=== PATIENT | female | born 2000 | race Caucasian/White ===

== ENCOUNTER 2023-08-08 13:08 | Emergency (ER) | payer BC, SELFPAY ==
[2023-08-08 13:22] VITALS: BP 112/74; PULSE 97; RESP 20; TEMP 36.8; O2SAT 98
--- NOTE | 2023-08-08 13:36 | ED.URI ---
HPI - URI/Sore Throat General Chief Complaint: Upper Respiratory Infection Stated Complaint: SINUS CONGESTION/EARACHE Source: patient Mode of arrival: ambulatory Limitations: no limitations History of Present Illness HPI Narrative: 22 y/o female presented for c/o sinus congestion and drainage for one week, now feels left ear pain with muffled hearing and pressure. She denies shortness of breath, wheezing, nausea, vomiting, fevers or chills. States last year she had ruptured ear drum and is concerned for the same. Related Data Allergies Allergy/AdvReac Type Severity Reaction Status Date / Time No Known Allergies Allergy Verified 08/08/23 13:48 Review of Systems Review of Systems: CONSTITUTIONAL: Denies malaise, chills, or fever. EYES: Denies visual changes, redness, or discharge. ENT: Denies sinus pain, and sore throat. Reports ear pain, rhinorrhea, congestion CARDIOVASCULAR: Denies chest pain, palpitations, or edema. RESPIRATORY: Denies cough or dyspnea. GASTROINTESTINAL: Denies abdominal pain, nausea, vomiting, diarrhea SKIN: Denies rash or itching. MUSCULOSKELETAL: Denies myalgia. NEUROLOGIC: Denies headache. All systems reviewed & are unremarkable except as noted in HPI and below PMFSH Past Medical History Medical History (Updated 08/08/23 @ 13:50 by Leah Moore APRN) No pertinent past medical history Comments At time of signature, agree with nursing past medical, surgical, social and family history. There is no relevant family history pertinent to the presenting complaint Exam Narrative: GENERAL: mildly ill-appearing, well-nourished, and in no acute distress. HEAD: Normocephalic EYES: PERRLA, conjunctivae clear ENT: Nares clear. Mucous membranes moist. TMs pearly murphy with dull light reflex bilaterally; no tragal tenderness. Oropharynx not erythematous without lesions. NECK: Supple. No lymphadenopathy CHEST: Clear to auscultation, breath sounds equal. No wheezing, rhonchi, rales, or stridor. No respiratory distress, speaks in full sentences. HEART: Regular rate and rhythm. No murmur heard. SKIN: Warm, dry, no rash. NEURO: Alert and oriented x3. PSYCH: Normal mood and affect Course Course Emergency Course: Patient is aware of diagnosis, understands and agrees to treatment plan. Anticipatory guidance given. Patient agrees to follow-up as directed and is aware of reasons to seek care at the emergency department. Portions of this record may have been created with voice recognition software Level of Care: Express Care Visit Vital Signs Vital signs: Vital Signs Temperature 98.3 F 08/08/23 13:22 Pulse Rate 97 08/08/23 13:22 Respiratory Rate 20 08/08/23 13:22 Blood Pressure 112/74 08/08/23 13:22 Pulse Oximetry 98 08/08/23 13:22 Temperature 98.3 F 08/08/23 13:22 Pulse Rate 97 08/08/23 13:22 Respiratory Rate 20 08/08/23 13:22 Blood Pressure 112/74 08/08/23 13:22 Pulse Oximetry 98 08/08/23 13:22 Reviewed MDM - URI/Sore Throat MDM Narrative Medical decision making narrative: Discussed physical exam findings. Patient resides in [facility], will continue supportive measures and if no improvement will start abx. Reviewed signs/symptoms to go to the ER. Pt is appropriate for outpt treatment and f/u. Differential Diagnosis Differential diagnosis: Likely upper respiratory infection, otitis media, sinusitis, viral infection, bronchitis and pharyngitis Discharge Plan Discharge Clinical Impression: Upper respiratory infection Patient Disposition: Home, Self-Care Condition: Stable Instructions: Antibiotic Form, Upper Respiratory Infection (ED) Additional Instructions: Recommend Flonase spray and Zyrtec (or Claritin/Kaylie) over the counter Cough syrup may cause drowsiness; avoid driving or take it at night time. Tylenol 1000mg every 8 hours as needed for pain Symptomatic treatment includes: rest, fluids, and increase humidity of the air at
== END 2023-08-08 14:05 | disposition home or self-care (01) ==
PROVIDERS: Emergency Provider Nurse Practitioner Family; PCP Nurse Practitioner Family
DX: J06.9 Acute upper respiratory infection, unspecified (principal)
CPT/HCPCS: 99213; G0463

== ENCOUNTER 2025-04-05 12:05 | Outpatient (CLI) | payer BC, SELFPAY ==
--- NOTE | ~2025-04-05 | MM_ITS ---
EXAMINATION: MM screening priya BI w tip HISTORY: Screening TECHNIQUE: Craniocaudal and mediolateral oblique 3-D tomosynthesis images were obtained and synthetic 2-D images were generated. CAD analysis was submitted and interpreted. COMPARISON: No prior mammogram is available for comparison at this institution. BREAST PARENCHYMAL COMPOSITION: Dense: The breasts are extremely dense, which lowers the sensitivity of mammography. FINDINGS: There is no evidence of suspicious mass, calcification, or architectural distortion to sugg est malignancy in either breast. There has been no suspicious interval change. IMPRESSION: 1. No mammographic evidence of malignancy. 2. Recommend routine screening mammography in one year. BI-RADS Category 1: Negative Reviewed, dictated and finalized at location B.
--- OUTSIDE RECORDS SUMMARY | 2025-04-05 13:05 | XMS_ITS | Encounter Summary ---
Author Organization [facility] Address [address] [place] [address] Care Team Providers Care Scissors Grinder Name Role Phone Unavailable Primary Care Provider Unavailabl e Reason for Visit * Eval and Treat (Routine) - Closed Specialty Diagnoses / Procedures Referred By Cristino t Referred To Contact Sports Medicine Diagnoses Acute pain of right knee Acute medial meniscus tear of right knee, initial encounter Christopher Soriano PA [address] [place] [address] Phone: tel: fax: [facility] [address] [address] Phone: tel: fax: Referral ID Status Reason Start Date Expiration Date Visits Requested Visits Authorized [id number] Closed Performing Department to Schedule 02/11/2022 02/12/2023 12 12 Encounter Details Date Type Department Care Team (Late st Contact Info) Description 03/13/2022 12:52 PM CDT Hospital Encounter [facility] [address] [address] Christopher Soriano PA [address] [facility] [address] [place] [address] Social History Tobacco Use Types Packs/Day Years Used Date Smoking Tobacco: Never Smokeless Tobacco: Never Comments No Sex and Gender Information Value Date Recorded Sex Assigned at Not on file Legal Sex Female 12:22 PM DIRECTOR COMM[facility] Gender Identity Not on file Sexual Orientation Not on file COVID-19 Exposure Response Date Recorded In the last 10 days, have yo u been in contact with someone who was confirmed or suspected to have Coronavirus/COVID-19? 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 TIER: 3 ?? PATIENT INTENDED TREATMENT OUTCOME / GOALS ?? Patient's stated specific intended outcome(s) for therapy is??decrease her right knee pain to participate in recreational activity with her friends, and workout pain free and without restriction for socialization, fitness. ?? Short Term: Decrease knee pain so I can walk normally ?? 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 OBJECTIVE Observation: Minimal swelling to popliteal space ?? Shapes of Movement: Standing: pass Bottom of deadlift: pass ?? Mobility/Range of Motion: Equivalent passive and active terminal knee extension in supine Prone active knee flexion equivalent bilaterally Prone passive knee flexion mild limitation and increase in medial knee pain ?? Palpation: Tenderness in adductors and with dermal mobilization of medial knee TREATMENT ACTIVITIES: Today's Clinical Priority - based on today's clinical presentation: Tissue quality: Dermal mobilization of medial knee Mobility: End range knee flexion Motor Control: Tibial advancement strategy, active tibial rotation SC4: Deadlif Treatment Start Time: 1300 MANUAL THERAPY Clinician: Wesley Reyes DPT, ATC 10 minutes CLINICAL REASONING: soft tissue quality / compliance Region: Technique: Notes: Right knee dermal / subcutaneous mobilization Medial knee THERAPEUTIC EXERCISE Clinician: Wesley Reyes DPT, ATC 15 minutes CLINICAL REASONING: range of motion Target Notes: Tibial rotation graded exposure Sitting 90/90 Rastafari band application to proximal tibia Tibial internal and external rotation passively ?? Short quadruped Rastafari band application to proximal tibia Tibial internal and external rotation passively ?? NEURO RE-EDUCATION Clinician: Wesley Reyes DPT, ATC 20 minutes CLINICAL REASONING: Static Stabilization Impairment, Dynamic Stabilization Impairment and Functional Impairment Static Dynamic Assisted Loaded Notes: x Quadruped x x Quadrusac Hip internal / external rotation x Sitting x x V-sitting Red band around each foot Flexion <> extension at knee +dissociation progression Kettlebell overhead pressing x Kneeling x x 1/2 kneeling Anterior weight shifting Tibial advancement strategy Symmetrical Stance Bottom of deadlift Medial / lateral weight shifting x Asymmetrical Stance x x Elevated asymmetrical stance Active tibial rotation progression THERAPEUTIC ACTIVITY Clinician: Wesley Reyes DPT, ATC 15 minutes CLINICAL REASONING: Strength deficit and Functional limitations Assisted Loaded Notes: x Deadlift Progression x Kettlebell deadlift Lateral kettlebell deadlift NOTE: patient had markedly improved passive prone knee flexion overpressure Total Treatment Time: 60 minutes POST TREATMENT NOTES Next Treatment Suggestion/Targets: Tissue quality: Dermal to medial knee as needed Mobility: Recheck passive knee flexion Motor Control: Reassess SC4: arthur Pearson Patient reported no pain at her medial knee at the conclusion of treatment at rest. documented in this encounter Plan of Treatment Not on file documented as of this encounter Visit Diagnoses Not on filedocumented in this encounter Additional Health Concerns Infection Onset Date Last Indicated Resolved Time R/O COVID-19 04/14/2022 04/15/2022 04/15/2022 10:5 6 PM CDT documented as of this encounter
--- OUTSIDE RECORDS SUMMARY | 2025-04-05 13:06 | XMS_ITS | Continuity of Care Document ---
Author Organization [facility] Address [address] [place] [address] Phone Care Team Providers Care Conference Center Manager Name Role Phone Ria Mcpherson Unavailable Unavailabl e Allergies, Adverse Reactions, Alerts Substance Reaction Status Criticality No Known Allergies Active No Inform ation Medications Medication Instructions Dosage Effective Dates (start - stop) Status Comments Pyridium 200 mg tablet take 1 tablet by oral route 3 times every day after meals as needed 200 MG - Active Cipro 500 mg tablet take 1 tablet by oral route every 12 hours 500 MG - No Longer Active Procedures Procedure Date OFFICE/OUTPATIENT VISIT, EST URINALYSIS, AUTO, W/O SCOPE URINALYSIS, AUTO, W/O SCOPE URINALYSIS, AUTO, W/O SCOPE OFFICE/OUTPATIENT VISIT, NEW Results Test Name Date and Time Measure Units Reference Range Abnormal Flag Status Comments Panel Description: Urinalysis, Dip Final U-Glucose 10:08:00 1+ (250 mg/dL) Negative / Trace H Final Urinalysis Results may be Artificially Elevated due to Color of Specimen. U-Bilirubin 10:08:00 3+ (4 mg/dL) Negative A Final Urinalysis Results may be Artificially Elevated due to Color of Specimen. U-Ketones 10:08:00 5.0 Final U-Specific [place] 10:08:00 1.020 1.000 - 1.030 Final U-Occult Blood 10:08:00 1+ (25 Rafael/uL) Negative / Trace A Final Urinalysis Results may be Artificially Elevated due to Color of Specimen. U-pH 10:08:00 5.0 pH 5.0 - 9.0 Final U-Protein 10:08:00 Trace (+/- 15 mg/dL) Negative / Trace Final U-Urobilinog en 10:08:00 3+ (8.0 mg/dL) mg/dL 0.2 - 1.0 A Final Urinalysis Results may be Artificially Elevated due to Color of Specimen. U-Nitrite 10:08:00 Positive Negative POS Final Urinalysis Results may be Artificially Elevated due to Color of Specimen. U-Leukocytes 10:08:00 3+ (500 Torri/uL) Negative / Trace A Final Urinalysis Results may be Artificially Elevated due to Color of Specimen. Panel Description: Urine Culture, Routine Final Location of specimen? (i.e. throat, urethra, wound) 09:06:00 urine Final Result 1 09:06:00 Comment Final Culture shows less than 10,000 colony forming units of bacteria permilliliter of urine. This colony count is not generally consideredto be clinically significant. Urine Culture, Routine 09:06:00 Final report Final Advance Directives Directive Yes / No Effective Date File Name No Information Encounters Encounter Description Practice Location Reason(s) For Visit Diagnoses Date Provider Providers Copied on Encounter OFFICE/OUTPAT IENT VISIT, [facility], [address] [place] [address] [place], [id number], [place] tel:[phone] [facility] dysuria (chief complaint) Dysuria Candy Rollins. [address] [place] [address], [id number], [place]. tel:[phone] Referring Provider: Ria Gupta, [address] [place] [address], [address]. tel:[phone] OFFICE/OUTPAT IENT VISIT, [facility], [address] [facility] [address], [place], [place], [id number], [place] tel:[phone] [facility] Dysuria (chief complaint) DysuriaUTI Violette Shelley. [address] [place] [address], [id number], [place]. tel:[phone] Referring Provider: Daphney Oakes, [address] [place] [address], [address]. tel:[phone] Family History Family Member Type Diagnosis Age At Onset No Information Payers Payer name Insurance type Covered alliance party ID Authoriza tibrady(s) [facility] [id number] BL [id number] Social History Type Description Quantity Date Captured Comments Alcohol Use Details Unknown Caffeine Use Details Unknown Tobacco Use Status No Information Smoking Status No Information Sex Female Vital Signs Date / Time: Height Weight BMI Pulse Rate Blood Pressure Temperature Respiratory Rate Body Surface Area Head Circumference Head Circ. Percentile Wt./Elías. Percentile BMI percentile Pulse Ox Inhaled Ox 2:08 PM 66.00 in 59.421 kg (131.00 lbs) 21.1 4 kg/m eter (2) 91 /min 112/68 mm[Hg] 98.20 F 16 /min 97 % Chief Complaint And Reason For Visit From encounter dated '07/16/2023 09:45'. dysuria (chief complaint). Description: Onset: 1 Day. The severity of the problem is mild. The problem has worsened. The symptoms are constant. Presenting/Initial symptoms include abdominal pain, dysuria, frequency, lower back pain and urgency. Aggravating factors include urination. Denies relieving factors. Associated symptoms include abdominal pain, dysuria, frequency and urgency. Pertinent negatives include dribbling, fatigue, fever, flank pain, hematuria, hesitancy, nausea, nocturia, pelvicpain, penile discharge, pressure, rash, retention, vaginal discharge or vomiting. Reason For Referral Reason For Referral No Information Plan Of Treatment Date Type Action Status Referral Ordered: Dr. Tino Clay -Obstetrics and Gynecology (related to Dysuria) ordered Referral Referred To: Dr. Tino Clay Ordered: Referrals: Obstetrics and Gynecology. Dr. Tino Clay. Location: [facility]. Evaluate and treat ordered Future Order: Lab Order Genitour inary Infection, [facility] ([facility]), Collected on: , Sent on: Sent History Of Present Illness Encounter Date Complaint History Of Prese nt Illness dysuria Onset: 1 Day. Th e severity of the problem is mild. The problem has worsened. The symptoms are constant. Presenting/Initial symptoms include abdominal pain, dysuria, frequency, lower back pain and urgency. Aggravating factors include urination. Denies relieving factors. Associated symptoms include abdominal pain, dysuria, frequency and urgency. Pertinent negatives include dribbling, fatigue, fever, flank pain, hematuria, hesitancy, nausea, nocturia, pelvic pain, penile discharge, pressure, rash, retention, vaginal discharge or vomiting. Dysuria Onset: 3 Days. T he severity of the problem is moderate. Pain scale: 0/10. The problem has not changed. The symptoms are constant. Presenting/Initial symptoms include dysuria, frequency and urgency. Symptoms are associated with recurring urinary tract infections. Symptoms are not associated with diabetes, or recent catheterization. Aggravating factors include urination. Symptoms are not aggravated by baths, certain foods or sexual activity. Symptoms are not relieved by increased fluids, OTC analgesics, pain medication or rest. Associated symptoms include dysuria, frequency, pressure and urgency. Pertinent negatives include abdominal pain, dribbling, fatigue, fever, flank pain, hematuria, hesitancy, nausea, nocturia, pelvic pain, penile discharge, rash, retention, vaginal discharge or vomiting. Functional Status Date Functional Assessmen t Pain Score 0/10 Instructions Date Instruction Additional Infor talita UA: glucose 1+, bili ma 3+, blood 1+, protein trace, urobilinogen 3+, nitrite positive, leukocytes 3+Cephalexin 500mg BID x7 daysPyridium 200mg TID PRNCulture urine to ensure abx coverage.Increase fluid intakewipe front to backvoid before and after intercourseMay take tylenol/ibuprofen for pain PRNReferral to Uro/STIFF LEG DERRICK OPERATOR (Dr. Clay) in [facility] is s/s worsen or do not improve. Related to Dysuria -- Macrobid twice da jamari x5 days--Continue with Azo as needed--Increase water intake-- Motrin and Tylenol as needed-- Return to clinic as needed Related to UTI -- UA collected, res ults altered due to taking Azo-- Urine culture sent to [facility], will call patient with results Related to Dysuria Assessments Type Assessment Date assessment Dysuria impression 22-year-old female p resenting to urgent care with reports of UTI symptoms that began yesterday. Associated symptoms include frequency, urgency, odorous urine, dysuria, low abdominal pain, and low back pain. Patient reports she has taken Azo with moderate symptom relief. Physical exam findings include LCTA, bowel sounds active, heart rate regular, tenderness with palpation at suprapubic area, no CVA tenderness. Patient reports that she has history of frequent UTIs and is unsure of what else she could do to possibly prevent UTIs. Patient reports adequate water intake, wiping front to back, and avoiding other possible sources of UTIs. Discussion can of evaluation with urology for possible guidance on UTI care and patient agreeable to treatment plan and would like to be referred referred locally Mental Status Date Cognitive Assessment Orientation - Grady ed to time, place, person, situation. Patient Care Teams Name Effective Dates (start - stop) Status Members No Information
--- OUTSIDE RECORDS SUMMARY | 2025-04-05 13:06 | XMS_ITS | Encounter Summary ---
Author Organization [facility] Address [address] [place] [address] Care Team Providers Care Digital Marketing Intern Name Role Phone Unavailable Primary Care Provider Unavailabl e Reason for Visit * Eval and Treat (Routine) - Closed Specialty Diagnoses / Procedures Referred By Cristino t Referred To Contact Sports Medicine Diagnoses Acute pain of right knee Acute medial meniscus tear of right knee, initial encounter Christopher Soriano PA [address] [place] [address] Phone: tel: fax: [facility] [address] [address] Phone: tel: fax: Referral ID Status Reason Start Date Expiration Date Visits Requested Visits Authorized [id number] Closed Performing Department to Schedule 02/11/2022 02/12/2023 12 12 Encounter Details Date Type Department Care Team (Late st Contact Info) Description 03/20/2022 3:00 PM CDT Hospital Encounter [facility] [address] [address] Christopher Soriano PA [address] [facility] [address] [place] [address] Social History Tobacco Use Types Packs/Day Years Used Date Smoking Tobacco: Never Smokeless Tobacco: Never Comments No Sex and Gender Information Value Date Recorded Sex Assigned at Not on file Legal Sex Female 12:22 PM BEVELER Gender Identity Not on file Sexual Orientation Not on file COVID-19 Exposure Response Date Recorded In the last 10 days, have yo u been in contact with someone who was confirmed or suspected to have Coronavirus/COVID-19? 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 TIER:?3 ?? PATIENT INTENDED TREATMENT OUTCOME / GOALS ?? Patient's stated specific intended outcome(s) for therapy is??decrease her right knee pain to participate in recreational activity with her friends, and workout pain free and without restriction for socialization, fitness. ?? Short Term: Decrease knee pain so I can walk normally ?? Deli/Bakery Associate: alf self management of symptoms to participate fully in sand volleyball SUBJECTIVE Patient presents reporting that her knee is not doing too bad today. She states that she was verysore after last visit and the visit prior. However, this resolved after a day or so and she is doing better today. OBJECTIVE Observation: - Shapes of Movement: Standing: Pass PAIN (medial knee) Bottom of Deadlift: Pass Bottom of Lunge Left: Pass Bottom of Lunge Right: Pass Crouching Maykel Left: Fail Crouching Maykel Right: Fail Mobility/Range of Motion: Equavlent terminal knee extension Equivalent full access to short kneeling Palpation: - TREATMENT ACTIVITIES: Today's Clinical Priority - based on today's clinical presentation: Tissue quality: Dermal mobilization in terminal knee extension in stance Mobility: - Motor Control: - SC4: Lower extremity strength assessment, coordinated weight shifts Treatment Start Time: 1500 MANUAL THERAPY Clinician: Wesley Reyes DPT, ATC 10 minutes CLINICAL REASONING: soft tissue quality / compliance Region: Technique: Notes: Right knee dermal / subcutaneous mobilization Symmetrical stance + terminal knee extension Medial knee THERAPEUTIC ACTIVITY Clinician: Wesley Reyes DPT, ATC 0 minutes CLINICAL REASONING: Strength deficit Assisted Loaded Notes: x Squat Progression x Attempted strength assessment Single leg press increased medial knee pain significantly NEURO RE-EDUCATION Clinician: Wesley Reyes DPT, ATC 20 minutes CLINICAL REASONING: Static Stabilization Impairment, Dynamic Stabilization Impairment and Functional Impairment Static Dynamic Assisted Loaded Notes: x Kneeling x x Elevated 1/2 kneeling in deep knee flexion Pushing down Static hip abduction Heel raise progression x Asymmetrical Stance x x Elevated Asymmetrical stance in deep knee flexion Pushing down Static hip abduction Heel raise progression NOTE: tibial external rotation improves pain with deep knee flexion and terminal knee extension THERAPEUTIC ACTIVITY Clinician: Katerina Ortega 30minutes CLINICAL REASONING: Strength deficit Interventions: ??? Deadlift Progression: - o Asymmetrical stance - 35# kettlebell o Walking single leg deadlifts - no added weight ??? Lunge Progression: - o Box step-ups + 2, 13# kettlebell Notes/Treatment Outcomes: patient reports feeling really good, just out of shape Total Treatment Time: 60 minutes POST TREATMENT NOTES Next Treatment Suggestion/Targets: Tissue quality: - Mobility: - Motor Control: Transitional postures, asymmetrical to single limb SC4: Single limb strength assessment if pain free documented in this encounter Plan of Treatment Not on file documented as of this encounter Visit Diagnoses Not on filedocumented in this encounter Additional Health Concerns Infection Onset Date Last Indicated Resolved Time R/O COVID-19 04/14/2022 04/15/2022 04/15/2022 10:5 6 PM CDT documented as of this encounter
--- OUTSIDE RECORDS SUMMARY | 2025-04-05 13:06 | XMS_ITS | Encounter Summary ---
Author Organization [facility] Address [address] [place] [address] Care Team Providers Care Public Address System Installer Name Role Phone Unavailable Primary Care Provider Unavailabl e Reason for Visit * Eval and Treat (Routine) - Closed Specialty Diagnoses / Procedures Referred By Cristino t Referred To Contact Sports Medicine Diagnoses Acute pain of right knee Acute medial meniscus tear of right knee, initial encounter Christopher Soriano PA [address] [place] [address] Phone: tel: fax: [facility] [address] [address] Phone: tel: fax: Referral ID Status Reason Start Date Expiration Date Visits Requested Visits Authorized [id number] Closed Performing Department to Schedule 02/11/2022 02/12/2023 12 12 Encounter Details Date Type Department Care Team (Late st Contact Info) Description 03/15/2022 9:30 AM CDT Hospital Encounter [facility] [employer] [facility] [address] [address] Christopher Soriano PA [address] [facility] [address] [place] [address] Social History Tobacco Use Types Packs/Day Years Used Date Smoking Tobacco: Never Smokeless Tobacco: Never Comments No Sex and Gender Information Value Date Recorded Sex Assigned at Not on file Legal Sex 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 No / Unsure 11/29/2022 8:08 AM OFFSET PRINTING OPERATOR documented as of this encounter Miscellaneous Notes * Therapy Treatment - Wesley Reyes, Physical Therapist - 03/15/2022 9:[address] [facility] SPORTS MEDICINE [facility] DAILY TREATMENT RECORD Patient: Ariadne Hankins : 2000 Insurer: Payor: [employer] / Plan: BCBS TRADITIONAL / Product Type: PPO / DATE: 03/15/2022 Referring Physician: Christopher Soriano PA VISIT#: 4 Remaining authorized visits: 8 Diagnosis:?Right??knee??pain ?? TIER:?3 ?? PATIENT INTENDED TREATMENT OUTCOME / GOALS ?? Patient's stated specific intended outcome(s) for therapy is??decrease her right knee pain to participate in recreational activity with her friends, and workout pain free and without restriction for socialization, fitness. ?? Short Term: Decrease knee pain so I can walk normally ?? 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 OBJECTIVE Observation: - ?? Shapes of Movement: Standing:??pass Bottom of deadlift: pass Bottom of lunge Left: pass, painful to medial knee ?? Mobility/Range of Motion: Equivalent passive terminal knee extension in supine with increased medial pain Lacking active extension approximately 3 degrees compared contralaterally Prone active knee flexion equivalent bilaterally Prone passive knee flexion mild limitation and increase in medial knee pain ?? Palpation: Tenderness in adductors and with dermal mobilization of medial knee ?? TREATMENT ACTIVITIES: Today's Clinical Priority - based on today's clinical presentation: Tissue quality: Dermal of medial knee Mobility: Terminal knee extension Motor Control: Static hip progression SC4: Deadlift competency, Bottom of lunge capability Treatment Start Time: 09 MANUAL THERAPY Clinician: Wesley Reyes DPT, ATC 15 minutes CLINICAL REASONING: pain and soft tissue quality / compliance Region: Technique: Notes: right knee dermal / subcutaneous mobilization Medial knee NEURO RE-EDUCATION Clinician: Wesley Reyes DPT, ATC 45 minutes CLINICAL REASONING: Static Stabilization Impairment, Dynamic Stabilization Impairment and Functional Impairment Static Dynamic Assisted Loaded Notes: x Prone x x Prone Pushing down Knee flexion perturbations + assisted tibial internal rotation 90 flexion + active hip extension Kettlebell loaded hip extension x Supine x Sidelying Static hip abduction manual resistance x Kneeling x x 1/2 kneeling Anterior weight shifting +plantarflexion perturbations x Symmetrical Stance x x Symmetrical stance <> bottom of deadlift Assisted tibial internal rotation Kettlebell deadlift NOTE: patient demonstrated equivalent terminal knee extension in supine and stance, she did have some mild increase in pain following deadlifting, bottom of lunge still painful to medial knee Total Treatment Time: 60 minutes POST TREATMENT NOTES Next Treatment Suggestion/Targets: Tissue quality: Dermal medial knee Mobility: Recheck knee range of motion Motor Control: Needs static hip abduction progression, consider static 1/2 kneeling and bottom of deadlift progressions SC4: - documented in this encounter Plan of Treatment Not on file documented as of this encounter Visit Diagnoses Not on filedocumented in this encounter Additional Health Concerns Infection Onset Date Last Indicated Resolved Time R/O COVID-19 04/14/2022 04/15/2022 04/15/2022 10:5 6 PM CDT documented as of this encounter
--- OUTSIDE RECORDS SUMMARY | 2025-04-05 13:06 | XMS_ITS | Clinical Summary ---
Author Organization [facility] Address [address] [place] [address] Care Team Providers Care Neuropsychology Medical Consultant Name Role Phone Unavailable Primary Care Provider Unavailabl e Allergies No known active allergies Medications Drospirenone-Et hinyl estradiol 3-0.02 mg tablet TAKE 1 TABLET BY MOUTH EVERY DAY 06/04/2021 Active ondansetron (ZOFRAN ODT) 4 mg Tablet, Rapid Dissolve Take 1 Tablet (4 mg) by mouth every 6 hours as needed for Nausea/Emesis . Dissolve tablet on top of tongue, then swallow with saliva. 20 Tablet 01/19/2024 Active sucralfate (CARAFATE) 1 gram tablet Take 1 Tablet (1 Gram) by mouth 4 times daily before meals and at bedtime. 20 Tablet 01/19/2024 Active Active Problems No known active problems Encounters Date Type Department Care Team Description 01/12/2025 External Device Data [facility] ABSTRACTION Provider, Abstract 01/12/2025 External Device Data [facility] ABSTRACTION Provider, Abstract from Last 3 Months Immunizations Immunization Administration Dates Next Due (PFIZER)(12 YR UP) COVID-19 VACCINE - EMERGENCY USE AUTHORIZATION, MRNA, [id number](PF) 30 MCG/0.3 ML IM SUSP 05/14/2021,04/09/2021 INFLUENZA VACCINE QUADRIVALENT 6 MOS UP PF IM Influenza Seasonal Unspecified Formulation IM ,07/19/2020 Social History Tobacco Use Types Packs/Day Years Used Date Smoking Tobacco: Never Smokeless Tobacco: Never Tobacco Cessation:Counseling Given: Not Answered Comments No Sex and Gender Information Value Date Recorded Sex Assigned at Not on file 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 Gender Identity Not on file Sexual Orientation Not on file Last Filed Vital Signs Vital Sign Reading Time Taken Comments Blood Pressure 104/70 01/19/2024 2:28 PM CDT Pulse 82 01/19/2024 2:28 PM CDT Temperature 36.5 C (97.7 F) 01/19/2024 2:28 PM CDT Respiratory Rate 18 01/19/2024 2:28 PM CDT Oxygen Saturation 99% 01/19/2024 2:28 PM CDT Inhaled Oxygen Concentration - - Weight 58.1 kg (128 lb) 01/19/2024 2:28 PM CDT Height 167.6 cm (5' 6) 01/19/2024 2:28 PM CDT Body Mass Index 20.66 01/19/2024 2:28 PM CDT Plan of Treatment Health Maintenance Due Date Last Done Comments HPV VACCINES (1 - 3-dose series) 2014 DTAP/TDAP/TD VACCINES (1 - Tdap) 2018 HEPATITIS B VACCINES (1 of 3 - 19+ 3-dose series) 2018 CERVICAL CANCER SCREENING 2020 HPV/Cotest (21-29) 2020 PAP SMEAR 2020 INFLUENZA VACCINE (#1) 2024 2, 07/27/2021, 07/19/2020 COVID-19 Vaccine ( - 2023-2 5 season) 2024 05/14/2021, 04/09/2021 Insurance [facility] BLUE ACCESS CHOICE RX [employer] Commercial
--- OUTSIDE RECORDS SUMMARY | 2025-04-05 13:06 | XMS_ITS | Encounter Summary ---
Author Organization [facility] Address [address] [place] [address] Care Team Providers Care Bakery Technician Name Role Phone Unavailable Primary Care Provider Unavailabl e Reason for Visit * Eval and Treat (Routine) - Closed Specialty Diagnoses / Procedures Referred By Cristino t Referred To Contact Sports Medicine Diagnoses Acute pain of right knee Acute medial meniscus tear of right knee, initial encounter Christopher Soriano PA [address] [place] [address] Phone: tel: fax: [facility] [employer] [facility] [address] [address] Phone: tel: fax: Referral ID Status Reason Start Date Expiration Date Visits Requested Visits Authorized [id number] Closed Performing Department to Schedule 02/11/2022 02/12/2023 12 12 Encounter Details Date Type Department Care Team (Late st Contact Info) Description 04/04/2022 1:00 PM CDT Hospital Encounter [facility] [employer] [facility] [address] [address] Christopher Soriano PA [address] [facility] [address] [place] [address] Social History Tobacco Use Types Packs/Day Years Used Date Smoking Tobacco: Never Smokeless Tobacco: Never Comments No Sex and Gender Information Value Date Recorded Sex Assigned at Not on file Legal 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 No / Unsure 11/29/2022 8:08 AM WELDING SUPERVISOR documented as of this encounter Miscellaneous Notes * Therapy Treatment - Issac William ATC - 04/04/2022 1:00 PM CDT [facility] SP[facility]IC[facility] DAILY TREATMENT RECORD Patient: Ariadne Hankins : 2000 Insurer: Payor: [employer] / Plan: BCBS TRADITIONAL / Product Type: PPO / DATE: 04/04/2022 Referring Physician: Christopher Soriano PA VISIT#: 6 Remaining authorized visits: 6 Diagnosis:?Right??knee??pain ?? TIER:?3 ?? PATIENT INTENDED TREATMENT OUTCOME / GOALS ?? Patient's stated specific intended outcome(s) for therapy is??decrease her right knee pain to participate in recreational activity with her friends, and workout pain free and without restriction for socialization, fitness. ?? Short Term: Decrease knee pain so I can walk normally ?? Residential: prison self management of symptoms to participate fully in sand volleyball SUBJECTIVE Patient presents reporting that she is feeling 92% better at this point. She states that she is just feeling random occasional twinges of medial knee pain when she is walking and has a valgus stress. OBJECTIVE Observation: Single Leg Press Body Weight: 125 lbs Pin Position #3 Bilateral: 170lbs Left: 80 lbs plate (110 lbs) x 4 repetitions = 120 lbs 1 Repetition Max Right: 80 lbs plate (110 lbs) x 2 repetitions = 113 lbs 1 Repetition Max Deficit: 6% STRENGTH REQUIREMENTS: Has met Shapes of Movement: Bottom of Deadlift (Set Up): C2 Bottom of Deadlift (Shape): C2 Bottom of squat set up: C0 Bottom of squat shape: C0 Bottom of Lunge Left (Set Up): C2 Bottom of Lunge Left (Shape): C1 Bottom of Lunge Right (Set Up): C2 Bottom of Lunge Right (Shape): C1 Mobility/Range of Motion: - Palpation: - TREATMENT ACTIVITIES: Today's Clinical Priority - based on today's clinical presentation: Tissue quality: - Mobility: - Motor Control: - SC4: Strength assessment, asymmetrical shapes Treatment Start Time: 1300 THERAPEUTIC EXERCISE Clinician: Wesley Reyes DPT ATC 30 minutes CLINICAL REASONING: mobility and strength Target Notes: Shapes See above Strength assessment See above THERAPEUTIC ACTIVITY Clinician: Issac William 25 minutes CLINICAL REASONING: Strength deficit and Functional limitations Assisted Loaded Notes: x Deadlift Progression x x Offset deadlift kickstand deadlift Single leg deadlift progression: top down, bottom up, static holds Squat Progression Lunge Progression Pushing Pulling Total Treatment Time: 55 minutes POST TREATMENT NOTES Next Treatment Suggestion/Targets: Tissue quality: - Mobility: - Motor Control: - SC4: Asymmetrical lower extremity Patient was fatigued at the end. documented in this encounter Plan of Treatment Not on file documented as of this encounter Visit Diagnoses Not on filedocumented in this encounter Additional Health Concerns Infection Onset Date Last Indicated Resolved Time R/O COVID-19 04/14/2022 04/15/2022 04/15/2022 10:5 6 PM CDT documented as of this encounter
--- OUTSIDE RECORDS SUMMARY | 2025-04-05 13:06 | XMS_ITS | Continuity of Care Document ---
Author Organization [facility] [employer] [facility] Address [address] [place] [address] Phone Care Team Providers Care Gauge Operator Name Role Phone Tino Clay DO Unavailable Unavailable Allergies, Adverse Reactions, Alerts Substance Reaction Status Criticality No Known Drug Allergies Active No I nformation Medications Medication Instructions Dosage Effective Dates (start - stop) Status Comments MITRA (28) 3 mg-0.02 mg tablet take 1 tablet by oral route every day 1.00 tablet - Active Procedures Procedure Date UA In House OFFICE O/P NEW LOW 30-44 MIN URINE CAPACITY MEASURE Advance Directives Directive Yes / No Effective Date File Name No Information Encounters Encounter Description Practice Location Reason(s) For Visit Diagnoses Date Provider Providers Copied on Encounter [facility], [address] [place] [address], [id number], [place] tel:[phone] [facility] No Information 3 Danna Silverman [address] [employer], [address], [place], [place], [id number] . tel:[phone] OFFICE O/P NEW LOW 30-[address] [facility], [address] [place] [address], [id number], [place] tel:[phone] [facility] chronic uti (chief complaint)f requent uti (chief complaint) Body mass index (BMI) 21.0-21.9, adultFrequent UTI [address], [address], [place], [place], [id number] . tel:[phone] Referring Provider: Tino Leonardo, [address] [facility], [place], [address] . tel:[phone] [facility], [address] [facility], [place], [place], [id number], tel:[phone] [facility] No Information 3 Claymechelle Jiménez. [address] [facility] [facility], [address], [place], [place], [id number] . [phone] Family History Family Member Type Diagnosis Age At Onset Mother Problem Cancer, skin Father Problem Alive and well Mother Problem Cancer, breast Immunizations Vaccine Date Status Comments Influenza, Seasonal administered Source: Other Registry Hep B, adult administered Source: Other R egistry InfluenzaQuad Inj P 6+MOS administered So urce: Other Registry COVID Bivalent (PFR 12+) administered Andreina rce: Other Registry Yellow Fever administered Source: Other R egistry Typhoid, ViCPs administered Source: Other Registry COVID-19 mRNA (PFR) administered Source: Other Registry COVID-19 mRNA (PFR) administered Source: Other Registry Payers Payer name Insurance type Covered constitution party ID Authoriza tion(s) [facility] [id number] Social History Type Description Quantity Date Captured Comments Alcohol Use Details Unknown Caffeine Use Details Unknown Tobacco Use Status No Information Smoking Status No Information Sex Female Sexual Orientation Straight or heterosexual Gender Identity Female Chief Complaint And Reason For Visit No Information Reason For Referral Reason For Referral No Information Plan Of Treatment Date Type Action Status Goal Lifestyle education regardin g diet completed Future Order: Lab Order Urine PC R-Healthtrack (OB) ([id number]), Collected on: Ordered History Of Present Illness Encounter Date Complaint History Of Prese nt Illness chronic uti frequent uti In the past 18 m [facility] she has had 8 uti. she believes she has had cultures at least the last two. she was recently treated and feels asymptomatic now. she has not had any change her in health other than the uti. she has not changed any medications. We discussed methenamine if the pcr is negative. her questions were answered. Functional Status Date Functional Assessmen t No Information Instructions Date Instruction Additional Infor talita Lifestyle education regarding di et Related to Body mass index [BMI] 21.0-21.9, adult Assessments Type Assessment Date No Information Patient Care Teams Name Effective Dates (start - stop) Status Members No Information
--- OUTSIDE RECORDS SUMMARY | 2025-04-05 13:06 | XMS_ITS | Encounter Summary ---
Author Organization [facility] Address [address] [place] [address] Care Team Providers Care Special Effects Person Name Role Phone Unavailable Primary Care Provider Unavailabl e Reason for Visit * Eval and Treat (Routine) - Closed Specialty Diagnoses / Procedures Referred By Cristino t Referred To Contact Sports Medicine Diagnoses Acute pain of right knee Acute medial meniscus tear of right knee, initial encounter Christopher Soriano PA [address] [place] [address] Phone: tel: fax: [facility] [address] [address] Phone: tel: fax: Referral ID Status Reason Start Date Expiration Date Visits Requested Visits Authorized [id number] Closed Performing Department to Schedule 02/11/2022 02/12/2023 12 12 Encounter Details Date Type Department Care Team (Late st Contact Info) Description 03/07/2022 1:00 PM CDT Hospital Encounter [facility] [address] [address] Christopher Soriano PA [address] [facility] [address] [place] [address] Social History Tobacco Use Types Packs/Day Years Used Date Smoking Tobacco: Never Smokeless Tobacco: Never Comments No Sex and Gender Information Value Date Recorded Sex Assigned at Not on file Legal Sex Female 12:22 PM 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 No / Unsure 11/29/2022 8:08 AM CUSTOMER ADVOCATE documented as of this encounter Miscellaneous Notes * Therapy Treatment - Wesley Reyes, Physical Therapist - 03/07/2022 1:00 PM CDT [facility] SP[facility] MEDIC[facility] DAILY TREATMENT RECORD Patient: Ariadne Hankins : 2000 Insurer: Payor: [employer] / Plan: BCBS TRADITIONAL / Product Type: PPO / DATE: 03/07/2022 Referring Physician: Christopher Soriano PA VISIT#: 2 Remaining authorized visits: 10 Diagnosis: Right knee pain TIER: 3 PATIENT INTENDED TREATMENT OUTCOME / GOALS Patient's stated specific intended outcome(s) for therapy is decrease her right knee pain to participate in recreational activity with her friends, and workout pain free and without restriction for socialization, fitness. ?? Short Term: Decrease knee pain so I can walk normally ?? Alf: residential self management of symptoms to participate fully in sand volleyball SUBJECTIVE Patient presents reporting she is getting better. The lacrosse ball helped significantly decrease pain and knee extension improved as well. She notes just a slight twinge of pain with activation ofextension. OBJECTIVE Observation: Minimal swelling to popliteal space Shapes of Movement: Standing: Fail Mobility/Range of Motion: Active extension: - 1, passive 5 Palpation: Tenderness in adductors TREATMENT ACTIVITIES: Today's Clinical Priority - based on today's clinical presentation: Tissue quality: Medial hamstring, adductors Mobility: Graded exposure to Tibial internal rotation, terminal knee extension Motor Control: Terminal knee extension SC4: Standing Treatment Start Time: 1:05 MANUAL THERAPY Clinician: Katerina Ortega 23 minutes CLINICAL REASONING: pain, soft tissue quality / compliance and range of motion ??? Soft Tissue Mobilization: adductors and posteromedial knee ??? Dermal/Subcutaneous Mobilization: adductors and posteromedial knee Notes/treatment Outcomes: Better and Improved ROM Only lacking 2 degrees of active extension when compared bilaterally. Slight pain with very end knee flexion with passive over-pressure. Minimal pain with stance. THERAPEUTIC EXERCISE Clinician: Wesley Reyes DPT, ATC 15 minutes CLINICAL REASONING: mobility Target Notes: Tibial rotation graded exposure Sitting 90/90 Scientologist band application to proximal tibia Tibial internal and external rotation passively Short quadruped Scientologist band application to proximal tibia Tibial internal and external rotation passively Symmetrical stance Scientologist band application to proximal tibia and distal femur Tibial internal and external rotation passively while alternating femur in opposite directions NEURO RE-EDUCATION Clinician: Wesley Reyes DPT, ATC 15 minutes CLINICAL REASONING: Static Stabilization Impairment, Dynamic Stabilization Impairment and Functional Impairment Static Dynamic Assisted Loaded Notes: x Symmetrical Stance x x Symmetrical stance Active terminal knee extension Alternating kettlebell overhead press NOTE: equivalent terminal knee extension in stance, mild increased in medial pain Total Treatment Time: 60 minutes POST TREATMENT NOTES Next Treatment Suggestion/Targets: Tissue quality: Medial hamstring and adductor septum Mobility: Tibial rotation as needed to clean up end range terminal knee extension and knee flexion Motor Control: Active terminal knee extension SC4: Stance Patient reports that she is feeling somewhat sore, but overall feels good. She notes that her motion is improved. documented in this encounter Plan of Treatment Not on file documented as of this encounter Visit Diagnoses Not on filedocumented in this encounter Additional Health Concerns Infection Onset Date Last Indicated Resolved Time R/O COVID-19 04/14/2022 04/15/2022 04/15/2022 10:5 6 PM CDT documented as of this encounter
--- OUTSIDE RECORDS SUMMARY | 2025-04-05 13:06 | XMS_ITS | Encounter Summary ---
[facility] Organization [facility] Address [address] [place] [address] Care Team Providers Care Cancellation Clerk Name Role Phone Unavailable Primary Care Provider Unavailabl e Reason for Visit * Eval and Treat (Routine) - Closed Specialty Diagnoses / Procedures Referred By Cristino t Referred To Contact Sports Medicine Diagnoses Acute pain of right knee Acute medial meniscus tear of right knee, initial encounter Christopher Soriano PA [address] [place] [address] Phone: tel: fax: [facility] [address] [address] Phone: tel: fax: Referral ID Status Reason Start Date Expiration Date Visits Requested Visits Authorized [id number] Closed Performing Department to Schedule 02/11/2022 02/12/2023 12 12 Encounter Details Date Type Department Care Team (Late st Contact Info) Description 02/27/2022 2:00 PM CDT Hospital Encounter [facility] [address] [address] Christopher Soriano PA [address] 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 NON-OPERATIVE EVALUATION Patient: Ariadne Hankins : 2000 Insurer: Payor: [employer] / Plan: BCBS TRADITIONAL / Product Type: PPO / DATE: 02/27/2022 Referring Physician: Christopher Soriano PA VISIT#: 1 Remaining authorized visits: 11 Diagnosis: Right knee pain Tier: 3 Patient arrives 10 minutes late SUBJECTIVE SOCIAL HISTORY: Ariadne Hankins is a 21 y.o. female referred for evaluation & treatment. 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 Enjoys playing recreational sand volleyball. Weight lifting 3-4x/week. Runs 10- 20 miles per week. PATIENT INTENDED TREATMENT OUTCOME / GOALS Patient's stated specific intended outcome(s) for therapy is decrease her right knee pain to participate in recreational activity with her friends, and workout pain free and without restriction for socialization, fitness. Short Term: Decrease knee pain so I can walk normally Skiver Box Toe: custodial self management of symptoms to participate fully in sand volleyball PRE-INJURY ACTIVITY LEVEL/OCCUPATIONAL DEMANDS Volleyball Student Scribe Running and wiehgt lifting PREVIOUS MEDICAL HISTORY of ORTHOPEDIC INJURY: Several left ankle sprains 1 year ago was last time Left knee pain 10 years ago ADDITIONAL RELEVANT MEDICAL HISTORY No past medical history on file. Multiple concussions, last was 4 years ago SYMPTOM HISTORY / PATIENT COMPLAINTS Patient reports that on 02/09/22 she was playing volleyball, and had sudden onset of right knee painfollowing an incident in which she had a valgus type stress with a twisting motion. She was bendingdown in a squat position to field a serve and ended up with the valgus stress. She states that she felt a pop at the time of her injury, she did have some increased swelling as well. She states that she was able to play several more games that night, but was having significant pain. Since then she has she states that her swelling has fully resolved, but her pain is still present with certain activities. Currently she states that her pain is at her medial knee, and in her posterior knee. She gestures globally and grossly to her medial and posterior knee. she complains of pain with terminal knee extension, ambulation. She is currently unable to participate in recreational activity with her friends, she has not been running, weight lifting either. OBJECTIVE Supportive Status Full weight bearing with mild antalgic and moderate flexed knee gait pattern. Tissue Quality Edema/effusion: trace Palpation: ??? Pain/tenderness is noted over the following structures: medial collateral ligament, distal adductors, vastus medialis, medial hamstrings ??? Altered tone is noted in the following structures: throughout superficial back line, noted in hamstrings and gastrocnemius, superfiicial front line, noted in quadriceps Shapes of Movement Profile - Critical Shapes Standing: Fail PAIN (right medial) Bottom of Deadlift: Pass Back Rack Left: Pass Back Rack Right: Pass Short Overhead Left: Pass Short Overhead Right: Pass Remaining critical shapes not completed due to pain Range of Motion Right KNEE Active Passive Extension -7 ?? pain -5 ?? pain Flexion 135 ?? pain 145 ?? pain Left KNEE Active Passive Extension 2 ?? 5 ?? Flexion 135 ?? 150 ?? Sitting 90/90 Tibial rotation Right active and passive internal and external limited compared to left Right internal increased pain at end range Mobility ??? None were performed at this time Special Testing ??? La test: Normal, Stable, Solid End-point ??? Anterior drawer test: Normal, Stable, Solid End-point ??? Varus stress test (Knee): Normal, Stable, Solid End-point ??? Valgus stress test (knee): Normal, Stable, Solid End-point, increased medial joint line pain atmedial collateral ligament ??? Edmund's: Medial joint line pain noted, no palpable or reported mechanical symptoms Strength Testing ??? none were performed at this time Neurological Assessment ??? None were performed at this time. Breathing Assessment ??? Breath Hold Test: 26 Seconds ??? Qualities: rapid, shallow, apical, poor diaphragmatic activity, poor lateral expansion and poorexhalation ASSESSMENT Patient was diagnosed by their physician with Right knee pain. Today's Clinical Assessment identified the following as contributing to or resulting from the physicians diagnosis: ??? inefficient breathing strategy ??? poor tissue quality ??? Increased tissue tone (guarding) ??? localized ROM limitations at the following joints: knee ??? systemic motor control limitations ??? pain secondary to Tissue damage ??? immobilization ??? a ROM deficit PLAN of CARE Base upon the patient's presentation today, combined with our objective findings and the referring physicians recommendation, we are recommending that the patient receive formal, skilled care at the following interval: ??? 2-3/ week for 2-4 weeks We also are providing the patient with a self-care program with the goal of establishing independent care, that includes the following: ??? Self- administered daily soft tissue work with a foam roll, lacrosse ball, or other implement available to the patient. ??? Self adjusted daily stretches/mobility drills based upon what is successful in formal therapy. ??? Custom designed strength program based upon what the patient has access to as well as their level of understanding and skill. ??? Individualized breathing protocols which include the most ideal times during the day to perform. Activity Status: At this time, based upon the patients clinical presentation, our recommendation is that the patientshould NOT be released to return back to their chosen activity at this time. GOALS All goals mutually established & agreed upon. All goals to be met within 4 weeks except as otherwise noted. Patient Oriented Goals: Patient will? Report adequate subjective resolution of presenting symptom complaints. ??? Demonstrate independence with appropriate self-care measures as needed to achieve improved function. Resume desired level of participation in community, leisure & social activities essential to their quality of life. ??? Resume desired occupational role as a scribe at [employer]. ??? Resume desired normal role as a recreational athlete. ??? Resume desired normal role as a student. Clinical Goals ??? Achieve adequate subjective resolution of acute pain to allow progression of motor control interventions required to support improved function. ??? Restore adequate soft tissue quality to support improved function. ??? Restore full, active/passive range of motion of the affected joint(s) with passive over-pressure / no BUCKLE ASSEMBLER threat perception at end-range. ??? Restore adequate systemic mobility to support improved function. ??? Develop adequate static stabilization strategy to support improved function. ??? Develop adequate dynamic stabilization strategy to support improved function. ??? Develop adequate movement strategies to safely support strength development as needed for chosen activity. ??? Develop minimal / adequate strength levels to meet functional demands of running, weight lifting, volleyball. Topics discussed with patient: ??? Evaluation findings, assessment, recommendations, patient / clinical goals and appropriate expectations. ??? The patient's questions were answered to their verbally indicated satisfaction. At the conclusion the patient stated that they were satisfied with the evaluation & the recommended plan of care. EVALUATION COMPLEXITY PERSONAL FACTORS: none COMORBIDITIES: chronic hyper ventilator Personal factors/comorbidities [] 0 [x] 1-2 [] 3 Examination of body systems(s) [] 1-2 [x] 3+ [] 4+ Clinical presentation [x] stable [] evolving [] unstable COMPLEXITY [x] LOW [] MODERATE [] HIGH Duration: 30 minutes, performed by: Wesley Reyes ATC/NANCY TREATMENT TREATMENT ACTIVITIES: Today's Clinical Priority: Establish Care Treatment Start Time: 1440 MANUAL THERAPY Clinician: Wesley Reyes DPT, ATC 10 minutes CLINICAL REASONING: soft tissue quality / compliance Region: Technique: Notes: right knee pain soft tissue mobilization Adductors, medial hamstring NEURO RE-EDUCATION Clinician: Wesley Reyes DPT, ATC 10 minutes CLINICAL REASONING: Pain and Static Stabilization Impairment Static Dynamic Assisted Loaded Notes: Prone x Supine x Supine Rate control breathing 5;5 Note: patient able to reach -2 degrees passive knee extension Total Treatment Time: 20 minutes POST TREATMENT NOTES Next Treatment Targets: Tissue quality: Medial hamstring, adductors Mobility: Graded exposure to Tibial internal rotation, terminal knee extension Motor Control: Terminal knee extension SC4: Standing documented in this encounter Plan of Treatment Scheduled Referrals Name Type Priority Associated Diagnoses Orde r Schedule AMB REFERRAL TO PHYSICAL THERAPY Outpatient Referral Routine Acute pain of right knee Acute medial meniscus tear of right knee, initial encounter Ordered: 02/11/2022 documented as of this encounter Visit Diagnoses Not on filedocumented in this encounter Additional Health Concerns Infection Onset Date Last Indicated Resolved Time R/O COVID-19 04/14/2022 04/15/2022 04/15/2022 10:5 6 PM CDT documented as of this encounter
== END 2025-04-05 12:06 | disposition home or self-care (01) ==
PROVIDERS: PCP Nurse Practitioner Family; Visit Provider Nurse Practitioner Women's Health
DX: Z12.31 Encounter for screening mammogram for malignant neoplasm of breast (principal)
CPT/HCPCS: 77063; 77067